=== PATIENT | male | born 1995 | race Caucasian/White ===

== ENCOUNTER 2021-03-29 14:18 | Outpatient (RCR) | payer MEDICAID, OTHER | END 2021-05-08 14:25 | disposition home or self-care (01) | PROVIDERS: ATTEND Internal Medicine | DX: M54.9 Dorsalgia, unspecified (principal) ==

== ENCOUNTER 2021-10-18 16:17 | Emergency (ER) | payer MEDICAID ==
[~2021-10-18] VITALS: Ht 200 cm; Wt 122.0 kg
--- NOTE | 2021-10-18 16:40 | ED Abdominal Pain ---
General Chief Complaint: Abdominal/GI Problems Stated Complaint: STOMACH PAIN Nursing Triage Note: PT AMB TO RM 6 PT CO OF ABD PAIN FOR 2 DAYS UPPER ABD. WORSENING TODAY AFTER EATING MACARONI FOR LUNCH, PT CO OF NAUSEA AND PAIN 9/10. PT DENIES PROBLEMS W BOWELS OR BLADDER AT THIS X. Source of Information: Patient Exam Limitations: No Limitations (MELONY PERLA STUDENT) History of Present Illness Date Seen by Provider: Oct 18, 2021 Time Seen by Provider: 16:25 Initial Comments Patient is a 26 year old male who presents to the ED with complaints of epigastric abdominal pain that radiates across his abdomen bilaterally and straight through to his back. He states this pain began yesterday while lying in bed. He's never had a pain like this before until yesterday. Reports he took 1500mg ibuprofen yesterday and 1000mg ibuprofen today with no relief of the pain yet. He describes the pain to be sharp and constant. The pain is currently a 10/10. Denies blood in stool. Eating initially improves the pain, then it soon thereafter worsens. He states he does not regularly use NSAIDS or drink. He's been eating and drinking a bit less due to the pain. Denies SOB, headaches, diarrhea, vomiting, fevers, chills, and sore throat. Denies recent sick contacts. Timing/Duration: 1-2 Days Severity/Quality: Severe, Sharp Location: Epigastric Radiation: RUQ, LUQ, Back, Chest Activities at Onset: None Modifying Factors: Improves With Eating, Improves With Palpation Associated Symptoms: No Diaphoresis, No Fever/Chills, No Headache, No Shortness of Air (MELONY PERLA MED STUDENT) Initial Comments I have seen and evaluated the patient performed a history and physical examination. Reviewed the medical students documentation and agree with the documentation. (MEG MANNING MD) Allergies and Home Medications Allergies Coded Allergies: No Known Drug Allergies (Unverified , 10/18/21) Patient Home Medication List Home Medication List Reviewed: Yes (MEG MANNING MD) Review of Systems Review of Systems Constitutional: no symptoms reported; No chills, No diaphoresis, No dizziness, No fever EENTM: No Symptoms Reported; No Blurred Vision, No Double Vision Respiratory: No Symptoms Reported; Denies Cough, Denies Shortness of Air Cardiovascular: Denies Edema, Denies Lightheadedness, Denies Palpitations Gastrointestinal: Denies Abdomen Distended, Denies Constipated, Denies Diarrhea, Denies Nausea, Denies Vomiting Genitourinary: Burning; Denies Drainage, Denies Frequency, Denies Flank Pain Musculoskeletal: No back pain, No joint pain, No joint swelling Skin: no symptoms reported; No change in color, No change in hair/nails Psychiatric/Neurological: No Symptoms Reported; Denies Anxiety, Denies Depressed Endocrine: No Symptoms Reported; Denies Excessive Sweating, Denies Flushing Hematologic/Lymphatic: No Symptoms Reported; Denies Easy Bleeding, Denies Easy Bruising (BOND) All Other Systems Reviewed Negative Unless Noted: Yes (BOND) Past Kyfnohn-Btecxb-Gxzmuf Hx Patient Social History Tobacco Use?: No Smoking Status: Never a Smoker Smokeless Tobacco Frequency: Never a User Use of E-Cig and/or Vaping dev: No Use of E-Cig and/or Vaping Avi: Never a User Substance use?: No Alcohol Use?: Yes Alcohol Frequency: Once in a while (BOND) Immunizations Up To Date Tetanus Booster (TDap): Unknown Influenza Vaccine Up-to-Date: No; Not Current First/Initial COVID19 Vaccinat: 2020 Second COVID19 Vaccination Michael: 2020 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[employer] (BOND) Seasonal Allergies Seasonal Allergies: No (BOND) Past Medical History Surgeries: No Respiratory: No Cardiac: No Neurological: No Reproductive Disorders: No Sexually Transmitted Disease: No Genitourinary: No Gastrointestinal: No Musculoskeletal: No Endocrine: No HEENT: No Loss of Vision: Denies Hearing Impairment: Denies Cancer: No Psychosocial: No Integumentary: No Blood Disorders: No (BOND) Physical Exam Vital Signs Vital Signs - First Documented 10/18/21 16:23 Temp 35.2 Pulse 72 Resp 18 B/P (MAP) 149/72 (97) Pulse Ox 97 (MEG MANNING MD) Vital Signs Capillary Refill : Less Than 3 Seconds (BOND) Height/Weight/BMI Height: '" Weight: lbs. oz. kg; 30.00 BMI Method: General Appearance: mild distress, obese HEENT: PERRL/EOMI, pharynx normal Neck: non-tender, full range of motion Respiratory: chest non-tender, lungs clear, normal breath sounds, no respiratory distress Cardiovascular: normal peripheral pulses, no murmur, tachycardia Peripheral Pulses: 2+ Radial Pulses (R), 2+ Radial Pulses (L) Gastrointestinal: normal bowel sounds, soft; No distended; tenderness (epigas tric regions and bilateral upper quadrants) Rectal: deferred Extremities: normal range of motion, non-tender, no pedal edema, no calf tenderness, normal capillary refill Back: normal inspection, no CVA tenderness, no vertebral tenderness Neurologic/Psychiatric: no motor/sensory deficits, alert, oriented x 3 Skin: normal color, warm/dry Lymphatic: no adenopathy (Head and neck) (MELONY PERLA MED STUDENT) General Appearance: WD/WN, mild distress HEENT: PERRL/EOMI Neck: full range of motion Respiratory: lungs clear, normal breath sounds, no respiratory distress Cardiovascular: normal peripheral pulses, regular rate, rhythm Gastrointestinal: normal bowel sounds, soft, tenderness (epigastric regions and bilateral upper quadrants) Extremities: normal range of motion, non-tender, no pedal edema Neurologic/Psychiatric: no motor/sensory deficits, alert, oriented x 3 Skin: normal color, warm/dry (MEG MANNING MD) Progress/Results/Core Measures Results/Orders Lab Results Laboratory Tests Test 10/18/21 16:27 Range/Units White Blood Count 10.5 4.3-11.0 10^3/uL Red Blood Count 5.03 4.30-5.52 10^6/uL Hemoglobin 14.7 13.3-17.7 g/dL Hematocrit 43 40-54 % Mean Corpuscular Volume 86 80-99 fL Mean Corpuscular Hemoglobin 29 25-34 pg Mean Corpuscular Hemoglobin Concent 34 32-36 g/dL Red Cell Distribution Width 12.0 10.0-14.5 % Platelet Count 290 130-400 10^3/uL Mean Platelet Volume 10.2 9.0-12.2 fL Immature Granulocyte % (Auto) 1 % Neutrophils (%) (Auto) 50 42-75 % Lymphocytes (%) (Auto) 36 12-44 % Monocytes (%) (Auto) 9 0-12 % Eosinophils (%) (Auto) 3 0-10 % Basophils (%) (Auto) 1 0-10 % Neutrophils # (Auto) 5.3 1.8-7.8 10^3/uL Lymphocytes # (Auto) 3.8 1.0-4.0 10^3/uL Monocytes # (Auto) 1.0 0.0-1.0 10^3/uL Eosinophils # (Auto) 0.3 0.0-0.3 10^3/uL Basophils # (Auto) 0.1 0.0-0.1 10^3/uL Immature Granulocyte # (Auto) 0.1 0.0-0.1 10^3/uL Sodium Level 140 135-145 MMOL/L Potassium Level 3.8 3.6-5.0 MMOL/L Chloride Level 107 98-107 MMOL/L Carbon Dioxide Level 19 L 21-32 MMOL/L Anion Gap 14 5-14 MMOL/L Blood Urea Nitrogen 16 7-18 MG/DL Creatinine 1.03 0.60-1.30 MG/DL Estimat Glomerular Filtration Rate 104 BUN/Creatinine Ratio 16 Glucose Level 114 H 70-105 MG/DL Calcium Level 9.0 8.5-10.1 MG/DL Corrected Calcium 8.8 8.5-10.1 MG/DL Total Bilirubin 0.4 0.1-1.0 MG/DL Aspartate Amino Transf (AST/SGOT) 39 H 5-34 U/L Alanine Aminotransferase (ALT/SGPT) 29 0-55 U/L Alkaline Phosphatase 65 40-136 U/L Total Protein 7.5 6.4-8.2 GM/DL Albumin 4.2 3.2-4.5 GM/DL Lipase 52 8-78 U/L (MEG MANNING MD) My Orders Orders - MEG MANNING MD Ed Iv/Invasive Line Start (10/18/21 16:35) Cbc With Automated Diff (10/18/21 16:35) Comprehensive Metabolic Panel (10/18/21 16:35) Lipase (10/18/21 16:35) Ns Iv 1000 Ml (Sodium Chloride 0.9%) (10/18/21 16:45) Pantoprazole Injection (Protonix Injecti (10/18/21 16:45) Sucralfate Tablet (Carafate Tablet) (10/18/21 16:45) Lidocaine 2% Viscous 15 Ml (Xylocaine Vi (10/18/21 16:45) Antacid Suspension (Mylanta Suspension (10/18/21 16:45) Ondansetron Injection (Zofran Injectio (10/18/21 16:45) Fentanyl Inj (Sublimaze Injection) (10/18/21 16:45) (MEG MANNING MD) Medications Given in ED (MEG MANNING MD) Vital Signs/I&O 10/18/21 10/18/21 16:23 18:30 Temp 35.2 Pulse 72 68 Resp 18 18 B/P (MAP) 149/72 (97) 119/74 Pulse Ox 97 97 (MEG MANNING MD) Blood Pressure Mean: 97 Progress Progress Note : Time: 17:52 Progress Note re-evaluated the patient after meds and labs. He feels MUCH better. relaxed and minimal pain. Talked to him about return precautions and reasons to return. Will put him on acid reducers. He is comfortable with the plan of care. all questions are sought and answered. (MEG MANNING MD) Departure Impression Primary Impression: Abdominal pain Qualified Codes: R10.13 - Epigastric pain Disposition: 01 HOME, SELF-CARE Condition: Improved Departure-Patient Inst. Decision time for Depature: 17:54 (MEG MANNING MD) Referrals: BLAINE SANCHEZ MD (PCP) Primary Care Physician [employer] STUDENT [facility] [place] (Family) Primary Care Physician Patient Instructions: Acid Reflux and GERD in Adults (DC), LOCAL PHYSICIAN LIST Add. Discharge Instructions: Avoid spicy foods and alcohol/tobacco products. Over the counter Prilosec daily for the next 2 weeks. If you have return of pain, fever over 100.4, vomiting, vomiting blood or passing blood in your stool, please come back to the ER for re-evaluation. Follow up with a primary care provider, I have provided you with a list of local physicians. You may need to see a surgeon or a GI doctor for a scope to look and see if you have an ulcer in your stomach that needs intervention. Verification and Attestation of Medical Student E/M Service A medical student performed and documented this service in my presence. I reviewed and verified all information documented by the medical student and made modifications to such information, when appropriate. I personally performed the physical exam and medical decision making. Meg Manning, Oct 22, 2021,08:01 (MEG MANNING MD) MELONY PERLA MED STUDENT Oct 18, 2021 16:40 MEG MANNING MD Oct 18, 2021 17:57
[2021-10-18] MEDS ORDERED: ANTACID SUSP 30 ML UDC (MYLANTA) PO ONE (16:45)
[2021-10-18] MEDS ORDERED: fentaNYL INJ 100 MCG/2 ML AMP IVP ONE (16:45)
[2021-10-18] MEDS ORDERED: PANTOPRAZOLE 40 MG (PROTONIX) VIAL IV ONE (16:45)
[2021-10-18] MEDS ORDERED: NS IV 1000 ML 1,000 ML IV SCH (16:45)
[2021-10-18] MEDS ORDERED: SUCRALFATE 1 GM (CARAFATE) TAB PO ONE (16:45)
[2021-10-18] MEDS ORDERED: LIDOCAINE 2% VISCOUS 15 ML UDC PO ONE (16:45)
[2021-10-18] MEDS ORDERED: ONDANSETRON 4 MG/2 ML (SDV) Z0FRAN IVP ONE (16:45)
[2021-10-18 17:13] LABS: BASOPHILS # (AUTO) 0.1 10^3/uL (0.0-0.1); BASOPHILS % (AUTO) 1 % (0-10); EOSINOPHILS # (AUTO) 0.3 10^3/uL (0.0-0.3); EOSINOPHILS % (AUTO) 3 % (0-10); HEMATOCRIT 43 % (40-54); HEMOGLOBIN 14.7 g/dL (13.3-17.7); LYMPHOCYTES # (AUTO) 3.8 10^3/uL (1.0-4.0); LYMPHOCYTES % (AUTO) 36 % (12-44); MEAN CORPUSCULAR HEMOGLOBIN 29 pg (25-34); MEAN CORPUSCULAR HGB CONC 34 g/dL (32-36); MEAN CORPUSCULAR VOLUME 86 fL (80-99); MEAN PLATELET VOLUME 10.2 fL (9.0-12.2); MONOCYTES % (AUTO) 9 % (0-12); NEUTROPHILS # (AUTO) 5.3 10^3/uL (1.8-7.8); NEUTROPHILS % (AUTO) 50 % (42-75); PLATELET COUNT 290 10^3/uL (130-400); WHITE BLOOD COUNT 10.5 10^3/uL (4.3-11.0)
[2021-10-18 17:18] LABS: ALBUMIN 4.2 GM/DL (3.2-4.5)
[2021-10-18 17:19] LABS: POTASSIUM 3.8 MMOL/L (3.6-5.0)
[2021-10-18 17:21] LABS: TOTAL PROTEIN 7.5 GM/DL (6.4-8.2)
[2021-10-18 17:23] LABS: BILIRUBIN,TOTAL 0.4 MG/DL (0.1-1.0)
[2021-10-18 17:25] LABS: CREATININE SERUM 1.03 MG/DL (0.60-1.30)
[2021-10-18 18:30] VITALS: BP 119/74
== END 2021-10-18 18:28 | disposition home or self-care (01) ==
LOC: EDUNIT# 16:17 → ER 16:20
DX: R10.13 Epigastric pain (principal); E66.9 Obesity, unspecified; Z68.30 Body mass index [BMI] 30.0-30.9, adult
CPT/HCPCS: 36415; 80053; 83690; 85025